=== PATIENT | female | born 1975 | race African-American/Black ===

== ENCOUNTER 2017-03-07 17:50 | Observation (INO) ==
[2017-03-07] MEDS ORDERED: ASPIRIN 325 MG TABLET PO STA (19:21)
[2017-03-07] MEDS ORDERED: ONDANSETRON 4 MG/2 ML VIAL IV STA (19:21)
[2017-03-07] MEDS ORDERED: SODIUM CHLORIDE 0.9% 500 ML IV STA (19:21)
[2017-03-07] MEDS ORDERED: ONDANSETRON 4 MG/2 ML VIAL ONE (19:26)
[2017-03-07 19:56] LABS: Basophils % 0.3 % (0.0-0.8); Eosinophils # 0.1 10*3/uL (0.0-0.87); Eosinophils % 1.8 % (0.00-10.9); Hematocrit 34.5 VOL% (35.7-47.0); Hemoglobin 11.1 GM/DL (12.0-16.0); Immature Granulocytes % 0.5 %; Immature Granulocytes Absolute 0.03 #; Lymphocytes # 1.8 10*3/uL (1.4-4.0); Lymphocytes % 28.7 % (21.3-54.2); Mean Corpuscular HGB Conc 32.2 GM/DL (32-36); Mean Corpuscular Hemoglobin 26 PG (27-34); Mean Corpuscular Volume 80.4 FL (87-102); Monocytes # 0.4 10*3/uL (0.11-0.8); Monocytes % 5.9 % (1.7-12.7); Neutrophils # 3.9 10*3/uL (1.4-7.4); Neutrophils % 62.8 % (38.7-73.9); Platelet Count 240 T/CUMM (130-400); Red Blood Count 4.29 MC/CUMM (3.8-5.5); Red Cell Distribution Width 14.4 % (9.3-17.3); White Blood Count 6.2 T/CUMM (4-12)
[2017-03-07 20:05] LABS: Apearance,Urine CLEAR (Clear); Bacteria,Urine Occasional /HPF (Few); Bilirubin,Urine Negative (Negative); Blood, Urine Negative (Negative); Glucose,Urine (UA) Negative (Negative); Granular Casts,Urine 1 /LPF (0-1); Ketones,Urine Negative (Negative); Mucus,Urine Occasional /LPF (Occasional); Nitrite,Urine Negative (Negative); Protein,Urine Negative; Squamous Epithelial Cell,Urine Occasional /HPF (0-10); Urine Color Yellow (Yellow); Urine Specific Gravity 1.009 (1.001-1.035); Urine Urobilinogen < 2.0 EU/DL (0.2-1.0); WBC,Urine <1 /HPF (0-6)
[2017-03-07 20:08] LABS: PT Patient Result 10.5 SECS; Partial Thromboplastin Time 25.7 SECS (0-40)
[2017-03-07 20:09] LABS: Barbiturates Screen,Urine Negative (Negative); Benzodiazepines Screen,Urine Negative (Negative); Cannabinoid Screen,Urine Negative (Negative); Opiate Screen,Urine Negative (Negative); Phencyclidine Screen,Urine Negative (Negative)
[2017-03-07 20:16] LABS: Alanine Aminotransferase 62 U/L (13-56); Albumin 3.6 G/DL (3.4-5.0); Alkaline Phosphatase 43 U/L (45-117); Aspartate Amino Transferase 45 U/L (0-37); Bilirubin,Total < 0.39 MG/DL (0.2-1.0); Blood Urea Nitrogen 10 MG/DL (7-18); Calcium 9.1 MG/DL (8.5-10.1); Glucose 93 MG/DL (74-106); Osmolality,Calculated 277.4 MOS/KG (273-304); Potassium 3.9 MMOL/L (3.5-5.1); Sodium 140 MMOL/L (136-145); Total Protein 7.2 G/DL (6.4-8.3); Troponin I Only < 0.015 NG/ML (0.00-0.045)
[2017-03-07] MEDS ORDERED: LABETALOL 20 MG/4 ML SYRINGE IV PRN (21:09)
[2017-03-07] MEDS ORDERED: GLUCAGON 1 MG VIAL IM PRN ×2 (21:15→23:09)
[2017-03-07] MEDS ORDERED: DEXTROSE 50% 25 GM/50 ML VIAL IV PRN ×2 (21:15→23:09)
[2017-03-07 22:25] LABS: Barbiturates Screen,Urine Negative (Negative); Benzodiazepines Screen,Urine Negative (Negative); Cannabinoid Screen,Urine Negative (Negative); Opiate Screen,Urine Negative (Negative); Phencyclidine Screen,Urine Negative (Negative)
[2017-03-08 09:56] LABS: Risk Ratio 4.9; VLDL CHOLESTEROL 18.8 MG/DL
[2017-03-08] MEDS: ASPIRIN 325 MG TABLET PO SCH (10:36)
[2017-03-08] MEDS: PANTOPRAZOLE 40 MG TABLET PO SCH ×3 (10:36→21:43)
[2017-03-08] MEDS: hydroCHLOROthiazide 12.5 MG CAPSULE PO SCH (10:36)
[2017-03-08] MEDS: LISINOPRIL 10 MG TABLET PO SCH (10:36)
[2017-03-08] MEDS: INSULIN REGULAR 100 UNIT/ML SUBCUT SCH ×4 (10:36→21:44)
[2017-03-08] MEDS: ENOXAPARIN 40 MG/0.4 ML SYRINGE SUBCUT SCH ×2 (21:45)
[2017-03-09 05:32] LABS: Free T4 (Free Thyroxine) 0.89 NG/DL (0.76-1.46); Thyroid Stimulating Hormone 2.62 uIU/ml (0.358-3.74)
[2017-03-09] MEDS ORDERED: EZETIMIBE 10 MG TABLET PO SCH (09:00)
[2017-03-09] MEDS: PANTOPRAZOLE 40 MG TABLET PO SCH (10:50)
[2017-03-09] MEDS: ASPIRIN 325 MG TABLET PO SCH (10:50)
[2017-03-09] MEDS: hydroCHLOROthiazide 12.5 MG CAPSULE PO SCH (10:52)
[2017-03-09] MEDS: LISINOPRIL 10 MG TABLET PO SCH (10:53)
[2017-03-09 12:00] VITALS: BP 122/50
[2017-03-09] MEDS: INSULIN REGULAR 100 UNIT/ML SUBCUT SCH ×2 (13:09→13:10)
[2017-03-09] MEDS ORDERED: COLESTIPOL 1 GM TABLET PO SCH (13:30)
== END 2017-03-09 15:20 | disposition home or self-care (01) ==
LOC: N.ED 17:50 → N.EDINP 17:50 → SUATTDRO 21:09 → N.TELES 22:16
PROVIDERS: ADMIT Hospitalist; ATTEND Internal Medicine